=== PATIENT | female | born 1940 ===

== ENCOUNTER → 2023-10-26 13:38 | Outpatient (BNVA) | payer MEDICARE, MEDICAID, SELFPAY | PROVIDERS: PCP Family Medicine; Referring Provider Family Medicine; Visit Provider Physician Assistant Surgical | DX: E66.2 Morbid (severe) obesity with alveolar hypoventilation (principal); J96.12 Chronic respiratory failure with hypercapnia; J96.11 Chronic respiratory failure with hypoxia | CPT/HCPCS: 99205 ==